=== PATIENT | male | born 1995 | race Caucasian/White ===

== ENCOUNTER 2022-02-14 19:44 | Emergency (ER) | payer SELFPAY ==
[2022-02-14] MEDS ORDERED: predniSONE 20 MG TAB ONE (20:54)
[2022-02-14] MEDS ORDERED: Ipratropium/Albuterol 3 ML NEB ONE (20:56)
== END 2022-02-14 21:56 | disposition home or self-care (01) ==
LOC: CSHERS 19:44
DX: J20.9 Acute bronchitis, unspecified (principal); F17.210 Nicotine dependence, cigarettes, uncomplicated
CPT/HCPCS: 71045; J7512; J7620